=== PATIENT | female | born 1955 | race African-American/Black ===

== ENCOUNTER 2016-08-09 09:55 | Emergency (ER) | payer MEDICAID ==
[~2016-08-09] VITALS: Ht 167.6 cm; Wt 72.6 kg
[~2016-08-09 09:55] MED LIST: ASPIRIN EC81 MG PO; KEFLEX500 MG ORAL; LOSARTAN POTASS25 MG ORAL; LOVASTATIN40 MG PO; MICARDIS40 MG PO; NORCO 10/3251 EA ORAL; NORCO 7.5-3251 EACH ORAL; NORCO1 E1 ORAL; NOVOLIN 70100 UNIT/1 SUBQ; PHENERGAN/CODE120 ML PO; ROBAXIN500 MG PO; SOMA350 MG PO; TESSALON PERLE100 MG PO; TYLENOL #31 TAB PO; VICODIN 5-5001 EACH PO; VICODIN ES 7.51 EACH PO
[2016-08-09 10:33] VITALS: BP 153/86
--- NOTE | 2016-08-09 10:36 | Emergency Room Report ---
History of Present Illness General Chief Complaint: Pain Source: Patient Present Illness HPI Patient was on July 31 she had a injury to her left foot twisting motion while wearing new shoes She felt that there was continued swelling and discomfort to the lateral aspect of the foot and therefore presents to the ER she has been taking her pain medication given to her by pain management for previous knee and back problems Pain is 5/10 worse with ambulation and pressure denies any laceration or cuts Allergies: Coded Allergies: IBUPROFEN (Verified Adverse Reaction, Severe, PANCREATITIS, 03/16/12) Patient History Past Medical History: see triage record Pertinent Family History: none Reviewed Nursing Documentation: PMH: Agreed, PSxH: Agreed Nursing Documentation-PMH Hx Cardiac Problems: No Hx Hypertension: No Hx Pacemaker: No Hx Asthma: No Hx COPD: Yes - BRONCHITIS Hx Diabetes: Yes Hx Cancer: No Hx Gastrointestinal Problems: No Hx Dialysis: No Hx Cerebrovascular Accident: No Hx Seizures: Yes - 20 YRS AGO, S/P USING DRUGS Review of Systems All Other Systems: negative except mentioned in HPI Physical Exam Vital Signs Date Time Temp Pulse Resp B/P Pulse Ox O2 Delivery O2 Flow Rate FiO2 08/09/16 10:02 98.1 75 18 153/86 100 Room Air Sp02 EP Interpretation: reviewed, normal General Appearance: well appearing, no apparent distress Head: normocephalic, atraumatic Eyes: bilateral eye EOMI, bilateral eye PERRL ENT: normal pharynx Neck: full range of motion, supple Respiratory: chest non-tender, lungs clear Cardiovascular #1: regular rate, rhythm Musculoskeletal: other - Tender on lateral metatarsal, region mild ecchymosis, mild swelling as well dorsal foot Skin: other - As above Lymphatic: no adenopathy Procedures Splinting Splinting : Consent: Verbal Location: Left foot Hand-Made Type: plaster Splint: poserior short Pre-Proc Neuro Vasc Exam: normal Post-Proc Neuro Vasc Exam: normal Patient Tolerated: Well Complications: None Medical Decision Making Diagnostic Impression: Primary Impression: Foot fracture, left ER Course X-ray imaging reveals acute fracture fifth metatarsal Patient had a posterior short leg splint applied And will require further outpatient eval Other X-Ray Diagnostic Results Other X-Ray Diagnostic Results : EP Interpretation: Yes Findings: no dislocation, no soft tissue swelling, other - fifth metatarsal distal fracture Number of Views: 3 - left foot Last Vital Signs Date Time Temp Pulse Resp B/P Pulse Ox O2 Delivery O2 Flow Rate FiO2 08/09/16 10:02 98.1 75 18 153/86 100 Room Air Status: improved Disposition: HOME, SELF-CARE Condition: Improved Additional Instructions: Patient is provided with the discharge instructions notified to follow up with primary doctor in the next 2-3 days otherwise return to the er with any worsening symptoms. Please note that this report is being documented using Universal [employer] technology. This can lead to erroneous entry secondary to incorrect interpretation by the dictating instrument. PRANAV HARVEY D.O. Aug 09, 2016 10:36
[2016-08-09 12:11] VITALS: BP 158/86
--- NOTE | 2016-08-09 12:12 | Diagnostic Imaging Report ---
Indication: PAIN Technique: 3 views left foot Comparison: none Findings: There is a fracture of the distal fifth metatarsal shaft. This is minimally displaced. No other acute fractures. No dislocations. Impression: Positive for fifth metatarsal shaft fracture Findings discussed with TICO Lawrence in emergency room at the time of interpretation
== END 2016-08-09 12:12 | disposition home or self-care (01) ==
LOC: EMR 11:10
DX: S92.352A Displaced fracture of fifth metatarsal bone, left foot, initial encounter for closed fracture (principal); J44.9 Chronic obstructive pulmonary disease, unspecified; E11.9 Type 2 diabetes mellitus without complications; Z88.6 Allergy status to analgesic agent; X50.1XXA Overexertion from prolonged static or awkward postures, initial encounter; Y92.9 Unspecified place or not applicable; Y99.8 Other external cause status
CPT/HCPCS: 29515; 99283

== ENCOUNTER 2016-12-07 13:52 | Emergency (ER) | payer MEDICAID ==
[~2016-12-07] VITALS: Ht 167.6 cm; Wt 77.1 kg
[2016-12-07 14:17] VITALS: BP 150/82
[2016-12-07 14:35] LABS: APPEARANCE,URINE SLIGHTLY CLOUDY; KETONES,URINE NEGATIVE (NEGATIVE); LEUKOCYTE ESTERASE ,URINE 3+ (NEGATIVE); NITRITE,URINE NEGATIVE (NEGATIVE); PH,URINE 7 (4.5-8.0); PROTEIN,URINE 1+ (NEGATIVE); UROBILINOGEN,URINE NORMAL MG/DL (0.0-1.0)
[2016-12-07 14:46] LABS: BACTERIA,URINE FEW /HPF; SQUAMOUS EPITHELIAL CELL,UR OCCASIONAL /LPF (NONE/OCC); WBC,URINE 30-40 /HPF (0 - 2)
[2016-12-07] MEDS ORDERED: NITROFURANTOIN100 M2 ORAL (14:59)
[2016-12-07 15:12] VITALS: BP 150/82
--- NOTE | 2016-12-07 15:53 | Emergency Room Report ---
History of Present Illness General Chief Complaint: Female Urogenital Problems Present Illness HPI The patient is a 61-year-old female presenting for increased urinary frequency and dysuria. Pain described as a 4/10 burning to the vaginal region only. She denies any hematuria. She denies any vaginal discharge. She denies radiating pain She denies any other symptoms including nausea, vomiting, fever, chills Allergies: Coded Allergies: IBUPROFEN (Verified Adverse Reaction, Severe, PANCREATITIS, 03/16/12) Patient History Past Medical History: see triage record Pertinent Family History: none Last Menstrual Period: N/A Now: No Reviewed Nursing Documentation: PMH: Agreed, PSxH: Agreed Nursing Documentation-PMH Hx Cardiac Problems: No Hx Hypertension: No Hx Pacemaker: No Hx Asthma: No Hx COPD: Yes - BRONCHITIS Hx Diabetes: Yes Hx Cancer: No Hx Gastrointestinal Problems: No Hx Dialysis: No Hx Cerebrovascular Accident: No Hx Seizures: Yes - 20 YRS AGO, S/P USING DRUGS Review of Systems All Other Systems: negative except mentioned in HPI Physical Exam Vital Signs Date Time Temp Pulse Resp B/P Pulse Ox O2 Delivery O2 Flow Rate FiO2 12/07/16 14:00 98.1 82 20 150/82 97 Room Air Sp02 EP Interpretation: reviewed, normal General Appearance: no apparent distress, alert, GCS 15, non-toxic Head: normocephalic, atraumatic Cardiovascular #1: regular rate, rhythm, no edema Gastrointestinal: normal bowel sounds, soft, non-distended, no guarding, no rebound, tenderness - suprapubic Genitourinary: normal inspection, no CVA tenderness Musculoskeletal: back normal, gait/station normal, normal range of motion, non- tender Neurologic: alert, oriented x3, responsive, motor strength/tone normal, sensory intact, speech normal Psychiatric: judgement/insight normal, memory normal, mood/affect normal, no suicidal/homicidal ideation Skin: normal color, no rash, warm/dry, well hydrated Lymphatic: no adenopathy Medical Decision Making PA Attestation Dr. Botello is my supervising physician. Patient management was discussed with my supervising physician Diagnostic Impression: Primary Impression: Urinary tract infection ER Course The patient is a 61-year-old female presenting for increased urinary frequency and dysuria. Differential diagnosis considered but not limited to: UTI, BV, yeast infection, pyelonephritis, PID PE: Afebrile NAD. Abdomen: Normal appearance. Non distended. No ecchymosis. Normal BS. TTP over suprapubic region only. No McBurney point tenderness. No guarding. No CVA tenderness Urinalysis is consistent with urinary tract infection The patient discharged home with a prescription for Macrobid and is given ER precautions. Laboratory Tests Test 12/07/16 14:07 Urine Color Pale yellow Urine Appearance Slightly cloudy Urine pH 7 (4.5-8.0) Urine Specific [place] 1.010 (1.005-1.035) Urine Protein 1+ (NEGATIVE) H Urine Glucose (UA) Negative (NEGATIVE) Urine Ketones Negative (NEGATIVE) Urine Occult Blood 5+ (NEGATIVE) H Urine Nitrite Negative (NEGATIVE) Urine Bilirubin Negative (NEGATIVE) Urine Urobilinogen Normal MG/DL (0.0-1.0) Urine Leukocyte Esterase 3+ (NEGATIVE) H Urine RBC 5-10 /HPF (0 - 2) H Urine WBC 30-40 /HPF (0 - 2) H Urine Squamous Epithelial Cells Occasional /LPF Urine Bacteria Few /HPF (NONE) Lab Results Impression Consistent with UTI Last Vital Signs Date Time Temp Pulse Resp B/P Pulse Ox O2 Delivery O2 Flow Rate FiO2 12/07/16 15:12 98.1 20 150/82 97 Room Air 12/07/16 14:00 82 Status: improved Disposition: HOME, SELF-CARE Condition: Improved Scripts Nitrofurantoin Monohyd/M-Cryst* (MACROBID 100 MG*) 100 Mg Capsule 100 MG ORAL EVERY 12 HOURS, #14 CAP Prov: IAN HEATON 12/07/16 Patient Instructions: Urinary Tract Infection Additional Instructions: I discussed my findings with the patient. All questions and concerns have been answered. Treatment and medication compliance have been addressed. I advised the patient that they need to follow up with PMD in 3-5 days. Return to ED if symptoms worsen, new symptoms arise, or if needed for any reason. Patient verbalized understanding of discharge instructions. IAN HEATON Dec 07, 2016 15:53
== END 2016-12-07 15:13 | disposition home or self-care (01) ==
LOC: EMR 14:25
DX: N39.0 Urinary tract infection, site not specified (principal); J44.9 Chronic obstructive pulmonary disease, unspecified
CPT/HCPCS: 81003; 87086; 87181; 99283

== ENCOUNTER 2016-12-19 14:35 | Emergency (ER) | payer MEDICAID ==
[~2016-12-19] VITALS: Ht 167.6 cm; Wt 77.1 kg
[~2016-12-19 14:35] MED LIST changes: +NITROFURANTOIN100 M2 ORAL
[2016-12-19] MEDS ORDERED: Acetaminophen 500mg (ES) tab ORAL ONE (15:00)
[2016-12-19 15:37] LABS: APPEARANCE,URINE CLOUDY; KETONES,URINE 1+ (NEGATIVE); LEUKOCYTE ESTERASE ,URINE 3+ (NEGATIVE); NITRITE,URINE NEGATIVE (NEGATIVE); PH,URINE 9 (4.5-8.0); PROTEIN,URINE 3+ (NEGATIVE); UROBILINOGEN,URINE 1 MG/DL (0.0-1.0)
[2016-12-19 15:46] LABS: WBC,URINE TNTC /HPF (0 - 2)
[2016-12-19 15:47] LABS: BACTERIA,URINE MANY /HPF; SQUAMOUS EPITHELIAL CELL,UR OCCASIONAL /LPF (NONE/OCC)
[2016-12-19 15:52] VITALS: BP 116/68
[2016-12-19] MEDS ORDERED: TYLENOL EXTRA500 MG ORAL (15:57)
[2016-12-19] MEDS ORDERED: CIPROFLOXACIN500 M2 ORAL (15:57)
[2016-12-19] MEDS ORDERED: Ciprofloxacin 500mg tab ORAL ONE (16:00)
[2016-12-19 16:24] VITALS: BP 116/68
--- NOTE | 2016-12-19 22:02 | Emergency Room Report ---
History of Present Illness General Chief Complaint: Fever Source: Patient Present Illness HPI The patient is a 61-year-old female presenting for fevers, back pain, and dysuria. Symptoms began 2 weeks prior. She was seen in this emergency department at that time and given a prescription for antibiotics which she states she finished. She did not experience any relief of the symptoms. Pain is described as a 9/10 dull ache to the mid lower abdomen and left lower back. No known provoking or relieving factors. She denies nausea, vomiting, diarrhea , chest pain, shortness of breath Allergies: Coded Allergies: IBUPROFEN (Verified Adverse Reaction, Severe, PANCREATITIS, 03/16/12) Patient History Past Medical History: see triage record Pertinent Family History: none Last Menstrual Period: na Reviewed Nursing Documentation: PMH: Agreed, PSxH: Agreed Nursing Documentation-PMH Past Medical History: No History, Except For Hx Cardiac Problems: No Hx Hypertension: No Hx Pacemaker: No Hx Asthma: No Hx COPD: Yes - BRONCHITIS Hx Diabetes: Yes Hx Cancer: No Hx Gastrointestinal Problems: No Hx Dialysis: No Hx Cerebrovascular Accident: No Hx Seizures: Yes - 20 YRS AGO, S/P USING DRUGS Review of Systems All Other Systems: negative except mentioned in HPI Physical Exam Vital Signs Date Time Temp Pulse Resp B/P Pulse Ox O2 Delivery O2 Flow Rate FiO2 12/19/16 14:43 102.6 103 18 212/132 96 Room Air Sp02 EP Interpretation: reviewed, normal General Appearance: no apparent distress, alert, GCS 15, non-toxic Head: normocephalic, atraumatic Eyes: bilateral eye PERRL, bilateral eye normal inspection Respiratory: chest non-tender, lungs clear, normal breath sounds, speaking full sentences Cardiovascular #1: regular rate, rhythm, no edema Gastrointestinal: normal bowel sounds, soft, non-distended, no guarding, no rebound, tenderness - epigastric Genitourinary: normal inspection, no CVA tenderness Musculoskeletal: back normal, gait/station normal, normal range of motion, non- tender Neurologic: alert, oriented x3, responsive, motor strength/tone normal, sensory intact, speech normal Psychiatric: judgement/insight normal, memory normal, mood/affect normal, no suicidal/homicidal ideation Skin: normal color, no rash, warm/dry, well hydrated Medical Decision Making PA Attestation Dr. Osei is my supervising physician. Patient management was discussed with my supervising physician Diagnostic Impression: Primary Impression: Urinary tract infection Qualified Codes: N39.0 - Urinary tract infection, site not specified; R31.9 - Hematuria, unspecified ER Course The patient is a 61-year-old female presenting for fevers, back pain, and dysuria Differential diagnosis considered but not limited to: UTI, vaginitis, pyelonephritis, among others Physical exam: Afebrile. No apparent distress Is tenderness to palpation over the suprapubic region only. No CVA tenderness Otherwise unremarkable Urinalysis is consistent with UTI Microbiology report from her visit on 12/07 shows susceptibility to ciprofloxacin. She is given a prescription for this antibiotic he needs to follow up with primary doctor. She is given ER precautions Laboratory Tests Test 12/19/16 15:00 Urine Color Yellow Urine Appearance Cloudy Urine pH 9 (4.5-8.0) Urine Specific [place] 1.015 (1.005-1.035) Urine Protein 3+ (NEGATIVE) H Urine Glucose (UA) Negative (NEGATIVE) Urine Ketones 1+ (NEGATIVE) H Urine Occult Blood 3+ (NEGATIVE) H Urine Nitrite Negative (NEGATIVE) Urine Bilirubin Negative (NEGATIVE) Urine Urobilinogen 1 MG/DL (0.0-1.0) H Urine Leukocyte Esterase 3+ (NEGATIVE) H Urine RBC 2-4 /HPF (0 - 2) H Urine WBC Tntc /HPF (0 - 2) H Urine Squamous Epithelial Cells Occasional /LPF Urine Bacteria Many /HPF (NONE) H Lab Results Impression Consistent with urinary tract infection Last Vital Signs Date Time Temp Pulse Resp B/P Pulse Ox O2 Delivery O2 Flow Rate FiO2 12/19/16 16:24 101.6 93 18 116/68 99 Room Air Status: improved Disposition: HOME, SELF-CARE Condition: Improved Scripts Acetaminophen* (TYLENOL EXTRA STRENGTH*) 500 Mg Tablet 500 MG ORAL Q8H Y for Prn Headache/Temp > 101, #30 TAB 0 Refills Prov: TERZIAN,IAN P.A. 12/19/16 Ciprofloxacin Hcl* (CIPROFLOXACIN HCL*) 500 Mg Tablet 500 MG ORAL EVERY 12 HOURS, #14 TAB 0 Refills Prov: TERZIAN,IAN P.A. 12/19/16 Patient Instructions: Fever, Adult, Urinary Tract Infection Additional Instructions: I discussed my findings with the patient. All questions and concerns have been answered. Treatment and medication compliance have been addressed. I advised the patient that they need to follow up with PMD in 3-5 days. Return to ED if symptoms worsen, new symptoms arise, or if needed for any reason. Patient verbalized understanding of discharge instructions. IAN HEATON Dec 19, 2016 22:02
== END 2016-12-19 16:27 | disposition home or self-care (01) ==
LOC: EMR 14:49
DX: N39.0 Urinary tract infection, site not specified (principal); E11.9 Type 2 diabetes mellitus without complications; J44.9 Chronic obstructive pulmonary disease, unspecified
CPT/HCPCS: 81003; 87086; 87181; 99284

== ENCOUNTER 2017-04-22 15:55 | Emergency (ER) | payer MEDICAID ==
[~2017-04-22] VITALS: Ht 165.1 cm; Wt 78.0 kg
[~2017-04-22 15:55] MED LIST changes: +CIPROFLOXACIN500 M2 ORAL; +TYLENOL EXTRA500 MG ORAL
[2017-04-22] MEDS ORDERED: ACETAMINOPHEN-1 EAC1 ORAL (16:29)
[2017-04-22] MEDS ORDERED: Norco 5mg/325mg tab ORAL ONE (16:30)
[2017-04-22] MEDS ORDERED: Ketorolac 60mg Inj IM ONE (16:30)
--- NOTE | 2017-04-22 16:45 | Emergency Room Report ---
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 No hip, knee replacement previously Allergies: Coded Allergies: IBUPROFEN (Verified Adverse Reaction, Severe, PANCREATITIS, 03/16/12) Patient History Past Medical History: none Past Surgical History: none Pertinent Family History: none Social History: Denies: smoking, alcohol use, drug use Now: No Immunizations: UTD Reviewed Nursing Documentation: PMH: Agreed, PSxH: Agreed Nursing Documentation-PMH Past Medical History: No History, Except For Hx Cardiac Problems: No Hx Hypertension: No Hx Pacemaker: No Hx Asthma: No Hx COPD: Yes - BRONCHITIS Hx Diabetes: Yes - prediabetic Hx Cancer: No Hx Gastrointestinal Problems: No Hx Dialysis: No Hx Cerebrovascular Accident: No Hx Seizures: Yes - 20 YRS AGO, S/P USING DRUGS Review of Systems All Other Systems: negative except mentioned in HPI Physical Exam Vital Signs Date Time Temp Pulse Resp B/P (MAP) Pulse Ox O2 Delivery O2 Flow Rate FiO2 04/22/17 16:03 97.9 73 16 142/80 100 Room Air Sp02 EP Interpretation: reviewed, normal General Appearance: normal inspection, well appearing, no apparent distress, alert, GCS 15, non-toxic Head: normocephalic, atraumatic Eyes: bilateral eye PERRL, bilateral eye EOMI ENT: normal ENT inspection, hearing grossly normal, normal pharynx, no angioedema, normal voice, TMs + canals normal, uvula midline, moist mucus membranes Neck: normal inspection, full range of motion, supple, thyroid normal, no meningismus, no bony tend Respiratory: normal inspection, lungs clear, normal breath sounds, no rhonchi, no respiratory distress, no retraction, no accessory muscle use, no wheezing, speaking full sentences Cardiovascular #1: regular rate, rhythm, no edema, no JVD, normal capillary refill Gastrointestinal: normal inspection, normal bowel sounds, non tender, soft, no mass, no peritonitis, non-distended, no guarding, no hernia, no pulsatile mass Genitourinary: no CVA tenderness Musculoskeletal: normal inspection, back normal, normal range of motion, non- tender, no calf tenderness, pelvis stable, Alejandra's Sign negative, other - Left buttock point ttp to deep palpation of muscle. +Left SL raise test Neurologic: normal inspection, alert, oriented x3, responsive, photonics engineer III-XII nml as tested, motor strength/tone normal, cerebellar normal, normal gait, speech normal Psychiatric: normal inspection, judgement/insight normal, mood/affect normal, no suicidal/homicidal ideation, no delusions Skin: normal inspection, normal color, no rash Lymphatic: normal inspection, no adenopathy Medical Decision Making Diagnostic Impression: Primary Impression: Sciatica of left side ER Course Patient with left-sided sciatica pain No focal neurological deficits No fever, vital signs stable Symptoms for 2 weeks No trauma Low suspicion for acute neurological process provided combination of medication for pain control Advise orthopedics followup ER course: Patient has remained stable during ED stay. Patient is to be discharged to home. Prescriptions given are T#3, motrin Patient is instructed to follow up with their primary care doctor within 5 days. Strict return precautions discussed with patient such as fever, chills, worsening/severe pain, nausea, vomiting, which may indicate severe illness. Patient verbalizes understanding and agrees with plan. Please note that this Emergency Department Report was dictated using [employer] shampooer technology software, occasionally this can lead to erroneous entry secondary to interpretation by the dictation equipment Last Vital Signs Date Time Temp Pulse Resp B/P (MAP) Pulse Ox O2 Delivery O2 Flow Rate FiO2 04/22/17 16:03 97.9 73 16 142/80 100 Room Air Status: improved Disposition: HOME, SELF-CARE Condition: Improved Scripts Acetaminophen With Codeine (T#3) (TYLENOL #3 TAB*) Y Tab 1 TAB ORAL Q8H Y for For Pain, #30 TAB Prov: GLORIA WALLS M.D. 04/22/17 Patient Instructions: Sciatica, [id number] Additional Instructions: try combination of heat or ice to area of pain to see what works better Take Tylenol #3 as needed for severe pain Followup with your doctor for referral to orthopedist if pain continues GLORIA WALLS M.D. Apr 22, 2017 16:45
[2017-04-22 16:54] VITALS: BP 136/76
== END 2017-04-22 16:54 | disposition home or self-care (01) ==
LOC: EMR 16:25
DX: M54.42 Lumbago with sciatica, left side (principal)
CPT/HCPCS: 96372; 99283

== ENCOUNTER 2018-11-15 11:23 | Emergency (ER) | payer OTHER, MEDICAID ==
[~2018-11-15] VITALS: Ht 165.1 cm; Wt 72.6 kg
[~2018-11-15 11:23] MED LIST changes: +ACETAMINOPHEN-1 EAC1 ORAL; +TRAMADOL HCL50 MG ORAL
[2018-11-15 11:27] VITALS: BP 144/82
--- NOTE | 2018-11-15 11:38 | NUR ---
ED Nurse Note: Pt. AAOx4. Ambulatory. pt. came in to ER due to an injury last 10/26/18. Per pt. she was closing a cabinet and hit her head. C/O headache and nose pain. denies LOC. Ever since the incident, the pain has been constant
[2018-11-15 12:20] VITALS: BP 132/68
--- NOTE | 2018-11-15 12:20 | NUR ---
ER DISCHARGE NOTE: Patient is cleared to be discharged per ERMD, pt is aox4, on room air, with stable vital signs. pt was given dc and prescription instructions, pt was able to verbalize understanding, pt id band removed. pt is able to ambulate with steady gait. pt took all belongings.
--- NOTE | 2018-11-18 07:13 | Emergency Room Report ---
History of Present Illness General Chief Complaint: Pain Source: Patient Present Illness HPI 63-year-old female presents ED for evaluation. Patient states that on 10/26 patient opened a cabinet door and hit himself herself on the head. States that she did not lose consciousness however has had pain to her nose and above her left eye since. Pain is throbbing, 6 out of 10, nonradiating. Denies photophobia or blurry vision. Denies nausea or vomiting. No other aggravating relieving factors. Denies any other associated symptoms Allergies: Coded Allergies: IBUPROFEN (Verified Adverse Reaction, Severe, PANCREATITIS, 03/16/12) Patient History Past Medical History: DM Past Surgical History: none Pertinent Family History: none Social History: Denies: smoking, alcohol use, drug use Now: No Immunizations: UTD Reviewed Nursing Documentation: PMH: Agreed; PSxH: Agreed Nursing Documentation-PMH Hx Cardiac Problems: No Hx Hypertension: No Hx Pacemaker: No Hx Asthma: No Hx COPD: Yes - BRONCHITIS Hx Diabetes: Yes - prediabetic Hx Cancer: No Hx Gastrointestinal Problems: No Hx Dialysis: No Hx Cerebrovascular Accident: No Hx Seizures: Yes - 20 YRS AGO, S/P USING DRUGS Review of Systems All Other Systems: negative except mentioned in HPI Physical Exam Vital Signs Date Time Temp Pulse Resp B/P (MAP) Pulse Ox O2 Delivery O2 Flow Rate FiO2 11/15/18 11:27 98.2 73 19 144/82 (102) 95 Room Air Sp02 EP Interpretation: reviewed, normal General Appearance: no apparent distress, alert, GCS 15, non-toxic Head: normocephalic Eyes: bilateral eye normal inspection, bilateral eye PERRL, bilateral eye EOMI , bilateral eye visual acuity ENT: hearing grossly normal, normal pharynx, no angioedema, normal voice, TMs + canals normal, other - tenderness to bride of nose. no bruising or swelling Neck: full range of motion, supple, no meningismus, supple/symm/no masses Respiratory: normal inspection Cardiovascular #1: normal inspection Gastrointestinal: normal inspection Rectal: deferred Genitourinary: no CVA tenderness Musculoskeletal: normal inspection Neurologic: normal inspection Psychiatric: normal inspection Skin: normal color Lymphatic: normal inspection Medical Decision Making Diagnostic Impression: Primary Impression: Head injury Qualified Codes: S09.90XA - Unspecified injury of head, initial encounter ER Course Hospital Course 63-year-old female presents ED complaining of pain s/p opened cabinet door to face Differential diagnoses include: cspine injury, muscle strain, nasal bone Fx, concussion Clinical course Patient placed on stretcher. After initial history, my physical exam reveals a middle aged female in no acute distress. There is some tenderness to the nasal bridge. No bruising or swelling. No signs of septal hematoma. Patient describes pain over the left eyebrow. No bruising or crepitus. Extraocular movements intact. No signs of entrapment. Remainder of exam unremarkable Findings with patient. Injury occurred nearly 2 weeks ago. No focal neurological deficits. No amnesia. No vomiting. No signs of head injury. Reassurance given to patient. I see no reason for imaging at this time. Patient agrees with plan but just wanted some reassurance. Safe for discharge for close outpatient follow-up Diagnosis - head injury Stable and discharged to home. Followup with PMD. Return to ED if symptoms recur or worsen Last Vital Signs Date Time Temp Pulse Resp B/P (MAP) Pulse Ox O2 Delivery O2 Flow Rate FiO2 11/15/18 12:20 98.2 85 17 132/68 96 Room Air Status: improved Disposition: HOME, SELF-CARE Condition: Stable Referrals: NON PHYSICIAN (PCP) Will[facility] Urb[facility] Patient Instructions: Head Injury, Adult, [id number] Lex Kearney MD Nov 18, 2018 07:13
== END 2018-11-15 12:20 | disposition home or self-care (01) ==
LOC: EMR 12:20
DX: S09.90XA Unspecified injury of head, initial encounter (principal); W22.03XA Walked into furniture, initial encounter; Y92.9 Unspecified place or not applicable; E11.9 Type 2 diabetes mellitus without complications; Z88.6 Allergy status to analgesic agent
CPT/HCPCS: 99282

== ENCOUNTER 2018-12-10 09:23 | Emergency (ER) | payer OTHER, MEDICAID ==
[~2018-12-10] VITALS: Ht 165.1 cm; Wt 74.8 kg
[2018-12-10 09:29] VITALS: BP 161/73
--- NOTE | 2018-12-10 09:32 | NUR ---
ED Nurse Note: Patient walked into ED c/o dog bite on the upper part of the nose on 12/08/18. patient reports that she needs tetanus shot. patient is alert awake x4 ambulatory, breathing unlabored and even.
--- NOTE | 2018-12-10 09:44 | Emergency Room Report ---
History of Present Illness General Chief Complaint: Animal Bite Source: Patient Present Illness HPI Patient is a 63-year-old female reports recent nasal injury. Patient states that she had been lightly bitten by a pit bull. She states this was accidental. Patient states that teeth had struck the right side of her nose. She denies any fever. The injury occurred approximate 2 days prior to arrival. She denies any vomiting or diarrhea. Patient denied any other locations of injury. Allergies: Coded Allergies: IBUPROFEN (Verified Adverse Reaction, Severe, PANCREATITIS, 03/16/12) Patient History Past Medical History: see triage record Last Menstrual Period: menopause Now: No Reviewed Nursing Documentation: PMH: Agreed; PSxH: Agreed Nursing Documentation-PMH Hx Cardiac Problems: No Hx Hypertension: No Hx Pacemaker: No Hx Asthma: No Hx COPD: Yes - BRONCHITIS Hx Diabetes: Yes - prediabetic Hx Cancer: No Hx Gastrointestinal Problems: No Hx Dialysis: No Hx Cerebrovascular Accident: No Hx Seizures: Yes - 20 YRS AGO, S/P USING DRUGS Review of Systems All Other Systems: negative except mentioned in HPI Physical Exam Vital Signs Date Time Temp Pulse Resp B/P (MAP) Pulse Ox O2 Delivery O2 Flow Rate FiO2 12/10/18 09:29 98.4 65 16 161/73 94 Room Air General Appearance: well appearing, no apparent distress, alert, GCS 15 Head: normocephalic, atraumatic ENT: hearing grossly normal, normal voice Neck: full range of motion, supple Respiratory: no respiratory distress, speaking full sentences Musculoskeletal: no calf tenderness Neurologic: normal gait Psychiatric: mood/affect normal Skin: no rash, other - small puncture to nasal bridge Medical Decision Making Diagnostic Impression: Primary Impression: Animal bite of face ER Course . She presented for possible animal bite to her face. Differential diagnosis include was not limited to foreign body, cellulitis, abscess among others. Patient has a benign exam and does not appear to require any further imaging or laboratory testing at this time. Patient was noted to have minimal erythema from the animal bite. Patient's wound is barely detectable. There is no purulent drainage. Patient will be given antibiotic prescription as well as updated tetanus vaccine. Patient states that the dog appeared well and does not appear to be likely to require any rabies vaccine. Patient be discharged home. She advised that when checked in 2 days. She is to return if worse. Last Vital Signs Date Time Temp Pulse Resp B/P (MAP) Pulse Ox O2 Delivery O2 Flow Rate FiO2 12/10/18 09:29 98.4 65 16 161/73 (102) 94 Room Air Status: improved Disposition: HOME, SELF-CARE Condition: Stable Scripts Amoxicillin/Potassium Clav 875-125* (AUGMENTIN 875-125 TABLET*) 1 Each Tablet 1 TAB ORAL TWICE A DAY, #14 TAB Prov: Lex Ramirez MD 12/10/18 Lex Ramirez MD Dec 10, 2018 09:44
[2018-12-10] MEDS ORDERED: Tetanus/Diptheria/Pertussis IM ONE (09:45)
[2018-12-10] MEDS ORDERED: Augmentin 875mg Tab ORAL ONE (09:45)
[2018-12-10] MEDS ORDERED: AUGMENTIN 875-1 EAC1 ORAL ×2 (09:53→09:57)
[2018-12-10 10:04] VITALS: BP 161/73
--- NOTE | 2018-12-10 10:04 | NUR ---
ER DISCHARGE NOTE: Patient is cleared to be discharged per ERMD DR Ramirez, pt is aox4, on room air, with stable vital signs. pt was given dc and prescription instructions, pt was able to verbalize understanding, pt id band removed without complications. pt is able to ambulate with steady gait. pt took all belongings. Animal Bite Reporting form was faxed to [phone]. patient's nose is already healed at this point, patient reports it was a small scratch as the dog's teeth bupmed into her nose. however patient reports that it bled out. patient was given tetanus shot and prescription for antibiotic. patient verbalized understanding of taking augmentin as ordered.
== END 2018-12-10 10:04 | disposition home or self-care (01) ==
LOC: EMR 10:00
DX: S01.25XA Open bite of nose, initial encounter (principal); W54.0XXA Bitten by dog, initial encounter; Y92.9 Unspecified place or not applicable; R73.03 Prediabetes; G40.909 Epilepsy, unspecified, not intractable, without status epilepticus; Z88.6 Allergy status to analgesic agent; Z23 Encounter for immunization
CPT/HCPCS: 90471; 90715; 99282

== ENCOUNTER 2019-02-01 10:55 | Emergency (ER) | payer OTHER, MEDICAID ==
[~2019-02-01] VITALS: Ht 165.1 cm; Wt 74.8 kg
[~2019-02-01 10:55] MED LIST changes: +AUGMENTIN 875-1 EAC1 ORAL
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
[2019-02-01 11:18] VITALS: BP 154/75
[2019-02-01] MEDS ORDERED: NORCO 7.5-3251 EACH ORAL (11:33)
[2019-02-01 11:50] LABS: BASOPHILS % (AUTO) 1.4 % (0.0-2.0); EOSINOPHILS % (AUTO) 2.6 % (0.0-3.0); HEMATOCRIT 39.5 % (37.0-47.0); LYMPHOCYTES % (AUTO) 28.4 % (20.0-45.0); MEAN CORPUSCULAR VOLUME 96 FL (80-99); NEUTROPHILS % (AUTO) 59.7 % (45.0-75.0); PLATELET COUNT 186 K/UL (150-450); RED BLOOD COUNT 4.12 M/UL (4.20-5.40); RED CELL DISTRIBUTION WIDTH 11.4 % (11.6-14.8); WHITE BLOOD COUNT 5.1 K/UL (4.8-10.8)
[2019-02-01 12:02] LABS: ANION GAP 6 mmol/L (5-15); BLOOD UREA NITROGEN 7 mg/dL (7-18); CALCIUM 8.7 MG/DL (8.5-10.1); CARBON DIOXIDE 29 MMOL/L (21-32); CHLORIDE 104 MMOL/L (98-107); CREATININE 0.7 MG/DL (0.55-1.30); POTASSIUM 4.3 MMOL/L (3.5-5.1); SODIUM 139 MMOL/L (136-145)
--- NOTE | 2019-02-01 12:07 | NUR ---
ED Nurse Note: Urine sent to lab
[2019-02-01 12:13] LABS: ALANINE AMINOTRANSFERASE 23 U/L (12-78); ALBUMIN 3.5 G/DL (3.4-5.0); ALBUMIN/GLOBULIN RATIO 0.9 (1.0-2.7); ALKALINE PHOSPHATASE 112 U/L (46-116); ASPARTATE AMINO TRANSFERASE 20 U/L (15-37); BILIRUBIN,TOTAL 0.2 MG/DL (0.2-1.0)
--- NOTE | 2019-02-01 12:17 | NUR ---
ED Nurse Note: patient went to CT
--- NOTE | 2019-02-01 12:26 | Diagnostic Imaging Report ---
Indication: Right shoulder pain COMPARISON: None Findings: 3 views of the right shoulder were obtained. No acute fractures, malalignment, erosions or periostitis are identified. The bones are osteopenic. There is marginal osteophyte formation involving the glenohumeral joint consistent with osteoarthritis. Soft tissues are unremarkable. Impression: Negative for acute injury
--- NOTE | 2019-02-01 13:41 | Diagnostic Imaging Report ---
Indication: Back pain Technique: Continuous helical transaxial imaging of the lumbar spine was obtained. No IV contrast was administered. Coronal 2-D reformats were also obtained. Study obtained in a Siemens sensation [address] Total Dose length Product (DLP): [address] Dose Index Volume (CTDIvol): A 3.6 mGy Comparison: None Findings: No acute fracture is identified. The bones are osteopenic. There is moderate narrowing of intervertebral discs at L4-5 and L5-S1. There is vacuum phenomena noted. There is moderate sclerosis and hypertrophy of the lumbar facets especially at L3-4 L4-5 and L5-S1. There is multilevel neural foraminal stenosis present. There is likely central spinal stenosis within the lumbar spine especially at L4-5. Aortoiliac calcifications are moderate. Multiple diverticula noted within the visualized part of the colon. Impression: No acute injury. Degenerative spondylosis as described above Atherosclerotic disease. Diverticulosis of the colon incidentally noted The CT scanner at [facility] is accredited by the [employer] and the scans are performed using dose optimization techniques as appropriate to a performed exam including Automatic Exposure control.
--- NOTE | 2019-02-01 13:46 | Diagnostic Imaging Report ---
Indication: Cervical trauma/pain. Technique: Continuous helical imaging of the cervical spine was obtained transaxially from the skull base to the upper thoracic spine. 2-D coronal and sagittal reformatted images were obtained. Automatic Exposure Control was utilized. Total Dose length Product (DLP): 437.[address] Dose Index Volume (CTDIvol): 16.3 mGy Comparison: None Findings: No acute fracture or malalignment identified on the examination. The bones are osteopenic. There is no soft tissue swelling identified. The skull base and other visualized osseous structures appear intact. Multilevel degenerative disease demonstrated characterized by narrowing of intervertebral discs, endplate, facet and uncovertebral osteophyte formation. At C3-4 there is mild narrowing of the right neural foramen. At C4-5 there is moderate to severe right foraminal and moderate left foraminal stenosis possible central stenosis. At C5-6 there is probable central stenosis and moderate bilateral foraminal stenosis. Moderate narrowing of intervertebral disc demonstrated. At C6-7 there is a mild to moderate bilateral foraminal stenosis. There is ossification of ligamentum flavum. Narrowing of intervertebral disc is moderate. C7-T1 shows a minimal anterolisthesis. IMPRESSION: No acute injury identified. Degenerative changes of the cervical spine as described The CT scanner at [facility] is accredited by the [employer] and the scans are performed using dose optimization techniques as appropriate to a performed exam including Automatic Exposure control.
--- NOTE | 2019-02-01 13:53 | Diagnostic Imaging Report ---
Indication: Headache and head trauma Technique: Contiguous 5 mm thick transaxial imaging of the head obtained in a Siemens Sensation [address] scanner. Soft tissue and bone windows generated. Automatic Exposure Control was utilized. Total Dose length Product (DLP): [address] Dose Index Volume (CTDIvol): 75.3 mGy Comparison: 01/27/2014 Findings: The size and configuration of the cortical sulci, basal cisterns, and ventricles are within normal limits for age. There is no mass effect, midline shift, or edema identified. There is no evidence of acute hemorrhage or abnormal intra-axial or extra-axial fluid collections. The bones and soft tissues are unremarkable. Impression: No mass effect, edema or acute bleed. The CT scanner at [facility] is accredited by the [employer] and the scans are performed using dose optimization techniques as appropriate to a performed exam including Automatic Exposure control.
[2019-02-01] MEDS ORDERED: LIDODERM700 M1 TOPIC (14:07)
[2019-02-01 14:30] VITALS: BP 154/75
--- NOTE | 2019-02-01 14:30 | NUR ---
ER DISCHARGE NOTE: Patient is cleared to be discharged per ERMD DR MARIA , pt is aox4, on room air, with stable vital signs. pt was given dc and prescription instructions, pt was able to verbalize understanding, pt id band and iv site removed without complications. pt is able to ambulate with steady gait. pt took all belongings.
--- NOTE | 2019-02-01 14:31 | Emergency Room Report ---
History of Present Illness General Chief Complaint: Pain Source: Medical Record, EMS Present Illness HPI 63-year-old female presents ED for evaluation. Patient walked in complaining of tingling and numbness in her arms and in her right leg. States is been going on for a few weeks now. Also right shoulder pain. States she had a injury at work 1 year ago and is been having ongoing pain since. States she is been taking pain medication at home. Pain is throbbing, 9 out of 10, radiating. Denies slurred speech or facial droop. Denies bowel or bladder incontinence. No other aggravating relieving factors. Denies any other associated symptoms Allergies: Coded Allergies: IBUPROFEN (Verified Adverse Reaction, Severe, PANCREATITIS, 03/16/12) Patient History Past Medical History: DM, COPD Past Surgical History: none Social History: Denies: smoking, alcohol use, drug use Now: No Immunizations: UTD Reviewed Nursing Documentation: PMH: Agreed; PSxH: Agreed Nursing Documentation-PMH Hx Cardiac Problems: No Hx Hypertension: No Hx Pacemaker: No Hx Asthma: No Hx COPD: Yes - BRONCHITIS Hx Diabetes: Yes - prediabetic Hx Cancer: No Hx Gastrointestinal Problems: No Hx Dialysis: No Hx Cerebrovascular Accident: No Hx Seizures: Yes - 20 YRS AGO, S/P USING DRUGS Review of Systems All Other Systems: negative except mentioned in HPI Physical Exam Vital Signs Date Time Temp Pulse Resp B/P (MAP) Pulse Ox O2 Delivery O2 Flow Rate FiO2 02/01/19 11:07 98.6 79 18 154/74 (100) 99 Room Air Sp02 EP Interpretation: reviewed, normal General Appearance: no apparent distress, alert, GCS 15, non-toxic Head: normocephalic, atraumatic Eyes: bilateral eye normal inspection, bilateral eye PERRL ENT: hearing grossly normal, normal pharynx, no angioedema, normal voice Neck: full range of motion, supple/symm/no masses, tender lateral, tender midline Respiratory: chest non-tender, lungs clear, normal breath sounds, speaking full sentences Cardiovascular #1: regular rate, rhythm, no edema Cardiovascular #2: 2+ carotid (R), 2+ carotid (L), 2+ radial (R), 2+ radial (L) , 2+ dorsalis pedis (R), 2+ dorsalis pedis (L) Gastrointestinal: normal bowel sounds, non tender, soft, non-distended, no guarding, no rebound Rectal: deferred Genitourinary: normal inspection, no CVA tenderness Musculoskeletal: back normal, gait/station normal, normal range of motion, non- tender Neurologic: alert, oriented x3, responsive, motor strength/tone normal, speech normal, other - tingling sensations biateral UEs, RLE Psychiatric: judgement/insight normal, memory normal, mood/affect normal, no suicidal/homicidal ideation Reflexes: 3+ bicep (R), 3+ bicep (L), 3+ tricep (R), 3+ tricep (L), 3+ knee (R) , 3+ knee (L) Skin: no rash Lymphatic: no adenopathy Medical Decision Making Diagnostic Impression: Primary Impression: Sciatica Qualified Codes: M54.31 - Sciatica, right side Additional Impressions: Cervical radiculopathy Opiate dependence Qualified Codes: F11.29 - Opioid dependence with unspecified opioid-induced disorder ER Course Hospital Course 63 yo F presents with numbness in arms and legs. h/o accidnet 1 year ago. Differential diagnoses include: arrythmia, dehydration, intracranial bleed, seizure Clinical course Patient placed on stretcher. on label cutter. After initial history and physical I ordered labs, EKG, Xray R shoulder, CT head/Cspine/Lspine labs reviewed- no leukocytosis, Hb/Hct stable, electrolytes ok, UDS + opiates CT Brain - unremarkable CT C spine and L spine - multilevel DJD with foraminal narrowing EKG - NSR no acute ischemic changes interpreted by me R shoulder xray - DJD, no fx/dislocation Discussed findings with the patient. Patient will be discharged to home. I will provide prescription for Lidoderm patch. On CURES patient is receiving extensive narcotic prescriptions on a monthly basis. I recommend outpatient physical therapy and orthopedic evaluation. I will provide referrals I. I feel this is a highly complex case requiring extensive working including EKG/Rhythm strip, Xray/CT/US, Blood/urine lab work, repeat exams while in ED, and administration of strong opiates/narcotics for pain control, admission to hospital or close patient follow up. Diagnosis - sciatica, cervical radiculopathy, opiate dependence Stable and discharged to home with Rx Lidoderm. Followup with PMD/ortho. Return to ED if symptoms recur or worsen Labs Test 02/01/19 11:38 02/01/19 12:02 White Blood Count 5.1 K/UL (4.8-10.8) Red Blood Count 4.12 M/UL (4.20-5.40) Hemoglobin 14.0 G/DL (12.0-16.0) Hematocrit 39.5 % (37.0-47.0) Mean Corpuscular Volume 96 FL (80-99) Mean Corpuscular Hemoglobin 33.9 PG (27.0-31.0) Mean Corpuscular Hemoglobin Concent 35.4 G/DL (32.0-36.0) Red Cell Distribution Width 11.4 % (11.6-14.8) Platelet Count 186 K/UL (150-450) Mean Platelet Volume 7.3 FL (6.5-10.1) Neutrophils (%) (Auto) 59.7 % (45.0-75.0) Lymphocytes (%) (Auto) 28.4 % (20.0-45.0) Monocytes (%) (Auto) 8.0 % (1.0-10.0) Eosinophils (%) (Auto) 2.6 % (0.0-3.0) Basophils (%) (Auto) 1.4 % (0.0-2.0) Sodium Level 139 MMOL/L (136-145) Potassium Level 4.3 MMOL/L (3.5-5.1) Chloride Level 104 MMOL/L (98-107) Carbon Dioxide Level 29 MMOL/L (21-32) Anion Gap 6 mmol/L (5-15) Blood Urea Nitrogen 7 mg/dL (7-18) Creatinine 0.7 MG/DL (0.55-1.30) Estimat Glomerular Filtration Rate > 60 mL/min (>60) Glucose Level 112 MG/DL (74-106) Calcium Level 8.7 MG/DL (8.5-10.1) Total Bilirubin 0.2 MG/DL (0.2-1.0) Aspartate Amino Transf (AST/SGOT) 20 U/L (15-37) Alanine Aminotransferase (ALT/SGPT) 23 U/L (12-78) Alkaline Phosphatase 112 U/L (46-116) Total Protein 7.2 G/DL (6.4-8.2) Albumin 3.5 G/DL (3.4-5.0) Globulin 3.7 g/dL Albumin/Globulin Ratio 0.9 (1.0-2.7) Urine Opiates Screen Positive (NEGATIVE) Urine Barbiturates Screen Negative (NEGATIVE) Phencyclidine (PCP) Screen Negative (NEGATIVE) Urine Amphetamines Screen Negative (NEGATIVE) Urine Benzodiazepines Screen Negative (NEGATIVE) Urine Cocaine Screen Negative (NEGATIVE) Urine Marijuana (THC) Screen Negative (NEGATIVE) EKG Diagnostic Results Rate: normal Rhythm: NSR ST Segments: no acute changes ASA given to the pt in ED: No Rhythm Strip Diag. Results EP Interpretation: yes Rhythm: NSR, no PVC's, no ectopy Other X-Ray Diagnostic Results Other X-Ray Diagnostic Results : X-Ray ordered: R shoulder # of Views/Limited Vs Complete: 3 View Indication: Pain EP Interpretation: Yes Interpretation: no dislocation, no soft tissue swelling, no fractures, other - DJD Impression: Other - arthritis Electronically Signed by: Electronically signed by Lex Kearney MD CT/MRI/US Diagnostic Results CT/MRI/US Diagnostic Results #1: Imaging Test Ordered: CT Head Impression Findings: The size and configuration of the cortical sulci, basal cisterns, and ventricles are within normal limits for age. There is no mass effect, midline shift, or edema identified. There is no evidence of acute hemorrhage or abnormal intra- axial or extra-axial fluid collections. The bones and soft tissues are unremarkable. CT/MRI/US Diagnostic Results #2: Imaging Test Ordered: CT C spine Impression Findings: No acute fracture or malalignment identified on the examination. The bones are osteopenic. There is no soft tissue swelling identified. The skull base and other visualized osseous structures appear intact. Multilevel degenerative disease demonstrated characterized by narrowing of intervertebral discs, endplate, facet and uncovertebral osteophyte formation. At C3-4 there is mild narrowing of the right neural foramen. At C4-5 there is moderate to severe right foraminal and moderate left foraminal stenosis possible central stenosis. At C5-6 there is probable central stenosis and moderate bilateral foraminal stenosis. Moderate narrowing of intervertebral disc demonstrated. At C6-7 there is a mild to moderate bilateral foraminal stenosis. There is ossification of ligamentum flavum. Narrowing of intervertebral disc is moderate. C7-T1 shows a minimal anterolisthesis. CT/MRI/US Diagnostic Results #3: Imaging Test Ordered: CT L spine Impression Findings: No acute fracture is identified. The bones are osteopenic. There is moderate narrowing of intervertebral discs at L4-5 and L5-S1. There is vacuum phenomena noted. There is moderate sclerosis and hypertrophy of the lumbar facets especially at L3-4 L4-5 and L5-S1. There is multilevel neural foraminal stenosis present. There is likely central spinal stenosis within the lumbar spine especially at L4-5. Aortoiliac calcifications are moderate. Multiple diverticula noted within the visualized part of the colon. Last Vital Signs Date Time Temp Pulse Resp B/P (MAP) Pulse Ox O2 Delivery O2 Flow Rate FiO2 02/01/19 11:18 98.6 71 14 154/75 100 Room Air Status: improved Disposition: HOME, SELF-CARE Condition: Stable Scripts Lidocaine Patch* (Lidoderm Patch*) 1 Each Adh..patch 1 PATCH TOPIC DAILY, #7 PATCH 0 Refills Patch(es) may remain in place for up to 12 hours in any 24-hour period. Prov: Lex Kearney MD 02/01/19 Referrals: NON PHYSICIAN (PCP) [facility] Open 24 hour /7 days a week by Appointment Only [address] [facility] [address] Patient Instructions: Sciatica, [id number], Cervical Radiculopathy, Easy-to- Read Lex Kearney MD Feb 01, 2019 14:31
--- NOTE | 2019-02-04 11:45 | Cardiology Report ---
APPROVED REPORT EKG Measurement Heart [id number] Normal sinus rhythm Normal ECG
== END 2019-02-01 14:30 | disposition home or self-care (01) ==
LOC: EMR 12:00
DX: M54.12 Radiculopathy, cervical region (principal); M54.31 Sciatica, right side; F11.29 Opioid dependence with unspecified opioid-induced disorder; J44.9 Chronic obstructive pulmonary disease, unspecified; R73.03 Prediabetes; Z88.8 Allergy status to other drugs, medicaments and biological substances
CPT/HCPCS: 36415; 70450; 72125; 72131; 80053; 80307; 85025; 93005; 99284